=== PATIENT | male | born 1945 | race Caucasian/White ===

== ENCOUNTER → 2018-07-31 | Day surgery (SDC) | payer MEDICARE, OTHER ==
[~2018-07-31] VITALS: Ht 188 cm; Wt 99.8 kg
[~2018-07-31] MED LIST: BUPIVAC MPF-EPI 0.5%-1:200000 30 ML VIAL. ONE; BUPIVACAINE MPF 0.5% 30 ML VIAL. ONE; DEXAMETHASONE SOD PHOS 20 MG/5 ML VIAL. ONE; HYDR-3164 PO; HYDROcodone/APAP 5/325MG 1 TAB TABLET PO ONE; HYDROmorphone 2 MG/ML VIAL IV PRN; IV RINGERS,LACTATED 1000ML 1,000 ML IV ONE; IV RINGERS,LACTATED 1000ML 1,000 ML IV SCH; LIDOCAINE 2% PF 5 ML VIAL. ONE; MORPHINE SULFATE 2 MG/ML VIAL. IV PRN; ONDANSETRON PF 4 MG/2 ML VIAL. IV PRN; ONDANSETRON PF 4 MG/2 ML VIAL. ONE; PROCHLORPERAZINE 10 MG/2 ML VIAL. IV PRN; PROPOFOL 20 ML IV ONE; fentaNYL PF VIAL 100 MCG/2 ML VIAL IV PRN; fentaNYL PF VIAL 100 MCG/2 ML VIAL ONE
[2018-07-31 08:11] LABS: BASO % 1 % (0-3); EOS # 0.2 x10^3/uL (0.0-0.7); EOS % 3 % (0-3); HEMATOCRIT 45.7 % (39.0-53.0); HEMOGLOBIN 15.7 g/dL (13.0-17.5); LYMPH # 1.1 x10^3/uL (1.0-4.8); LYMPH % 20 % (24-48); MEAN CORPUSCULAR HEMOGLOBIN 31 pg (25-35); MEAN CORPUSCULAR HGB CONC 34 g/dL (31-37); MEAN CORPUSCULAR VOLUME 90 fL (79-100); MONO # 0.5 x10^3/uL (0.0-1.1); MONO % 9 % (0-9); NEUT # 3.9 x10^3uL (1.8-7.7); NEUT % 68 % (31-73); PLATELET COUNT 219 x10^3/uL (140-400); RED BLOOD COUNT 5.08 x10^6/uL (4.30-5.70); RED CELL DISTRIBUTION WIDTH 12.9 % (11.5-14.5); WHITE BLOOD COUNT 5.7 x10^3/uL (4.0-11.0)
[2018-07-31 08:27] LABS: CALCIUM 8.8 mg/dL (8.5-10.1); CREATININE 1.4 mg/dL (0.7-1.3); GFR 49.8; POTASSIUM 4.3 mmol/L (3.5-5.1)
--- NOTE | 2018-07-31 10:26 | DISCH ---
DISCHARGE INSTRUCTIONS Condition on Discharge Condition on Discharge: Stable Activity After Discharge Activity Instructions for Disc: Bedrest today Diet after Discharge Diet after Discharge: Regular Wound Incision Care Wound/Incision Care: Ice to area for comfort Wound Care Equipment: Dressings Contacting the DR. after DC Call your doctor for: Fever greater than 100 Treatment/Equipment after DC Adaptive Equipment Issued: None ODILIA STEINBERG MD Jul 31, 2018 10:26
--- NOTE | 2018-07-31 10:37 | PDOC4 ---
OPERATIVE NOTE Date: Date: Jul 31, 2018 Pre-Op Diagnosis: R hydrocele Post-Op Diagnosis: same Procedure Performed: Rt hydrocelectomy Surgeon: wellington Anesthesia Type: gen Blood Loss: 20cc Specimans Obtained: hydrocele sac Findings: lg R hydrocele Complications: none Operative Note: Pt admin'd GA and placed in supine pos'n, prepped and draped in usual fashion. IV abx admin'd Mid line scrotal incision; R scrotal compartment entered and hydrocele and testis expressed through incision. The investing layers over the hydrocele were carefully stripped from the sac using cautery. The hydrocele sac then was opened and excised, taking care to not interrupt the blood supply to the testis. The edge of the sac was cauterized to control bleeding. It was fairly thin. The edge of the sac was then whip-stitched with 3-0 chromic. The testis appeared normal and had good viability. The inferior portion of the testis was then 'pexed to the inferior scrotum. The scrotum was irrigated and hemostasis appeared to be good. A site for a drain in the inf scrotum was opened and a 1" [place] drain was placed. The scrotum was then closed with 3 layers of 3-0 Chromic suture. The area was then anesthetized with 0.5% Marcaine. The drain was attached to fluffed gauze with a safety pin. A bulky, fluffed gauze dressing was applied to the scrotum followed by scrotal supporter. The patient was awakened and transferred to in stable cond'n. EBL min comp: none Disp: home w instructions and Rx for Lortab. RTO 1 wk. ODILIA STEINBERG MD Jul 31, 2018 10:37
[2018-07-31 11:15] VITALS: BP 150/78
--- NOTE | 2018-08-02 13:09 | PATHOLOGY ---
[facility] Accession Number: [id number] . 01 Material submitted: . RIGHT HYDROCELE SAC . 02 Diagnosis: Segments of mesothelial-lined fibromembranous tissue, right hydrocelectomy: - Consistent with hydrocele sac. (JPM:kasey; 07/31/2018) MBR/08/01/2018 . 02 Electronically signed: . Nestor Sutton MD, Pathologist NPI- [id number] . 01 Gross description: . The specimen is received in formalin, labeled "[place], right hydrocele sac", are two herzog-horton, fibromembranous fragments measuring 9.0 x 5.6 cm and 7.0 x 2.5 cm with an average 0.1 cm wall thickness. No discrete nodules or masses identified. [employer] tissue is submitted in A1. ([facility]; 07/31/2018)B SHS/SHS . 02 Pathologist provided ICD-10: N43.3 . 02 CPT . 889025 Specimen Comment: A courtesy copy of this report has been sent to Specimen Comment: [phone], . Specimen Comment: Report sent to / DR SERRANO Performed at: 01 [facility] [address], [place] [id number] MD Inderjit Crawford MD Phone: [phone] Performed at: 02 [facility] [address], [place] [id number] MD Nestor Sutton MD Phone: [phone]
== END | disposition home or self-care (01) ==
LOC: SURG 07:35
PROVIDERS: ATTEND Urology
DX: N43.3 Hydrocele, unspecified (principal); Z98.890 Other specified postprocedural states; Z79.899 Other long term (current) drug therapy
CPT/HCPCS: 36415; 55040; 80048; 85025; A7015; G0103; J0696; J1100; J2001; J2405; J2704; J3010; J3490; J7120; 88302; A4461